=== PATIENT | male | born 1955 | race Caucasian/White ===

== ENCOUNTER 2022-08-03 06:22 | Day surgery (SDC) | payer MEDICARE, OTHER ==
[2022-08-01 13:05] VITALS: BMI 37.6
[2022-08-03] MEDS ORDERED: PROPOFOL 40 ML ONE (07:46)
[2022-08-03] MEDS ORDERED: Lidocaine 1% PF 5 ML VIAL ONE (07:46)
== END 2022-08-03 09:24 | disposition home or self-care (01) ==
LOC: CSHSDC 06:22
PROVIDERS: ATTEND Internal Medicine Gastroenterology
PROC: 0DBN8ZZ Excision of Sigmoid Colon, Via Natural or Artificial Opening Endoscopic (ICD-10-PCS; principal; 2022-08-03)
DX: Z12.11 Encounter for screening for malignant neoplasm of colon (principal); D12.0 Benign neoplasm of cecum; K63.5 Polyp of colon; E66.9 Obesity, unspecified; E78.5 Hyperlipidemia, unspecified; R19.4 Change in bowel habit; K64.9 Unspecified hemorrhoids; Z79.899 Other long term (current) drug therapy; Z68.37 Body mass index [BMI] 37.0-37.9, adult
CPT/HCPCS: 88305; J2704